=== PATIENT | male | born 1975 | race Caucasian/White ===

== ENCOUNTER 2018-09-05 10:11 | Emergency (ER) | payer OTHER ==
[~2018-09-05] VITALS: Ht 172.7 cm; Wt 74.8 kg
[2018-09-05 11:19] LABS: HEMATOCRIT 41.5 % (42.0-52.0); HEMOGLOBIN 14.3 gm/dL (14.0-18.0); MCHC 34.5 g/dL (28.0-37.0); MCV 98.5 fL (80.0-100.0); RBC 4.21 mil/uL (4.50-6.00); RDW 12.8 % (10.5-14.5)
[2018-09-05 11:22] LABS: CALCIUM 9.1 mg/dL (8.5-10.1); CREATININE 1.2 mg/dL (0.7-1.3); POTASSIUM 3.9 mmol/L (3.5-5.1)
[2018-09-05] MEDS ORDERED: THERAFLU EXPRE1 EAC1 PO (11:49)
[2018-09-05] MEDS ORDERED: PHENERGAN 25 MG25 M1 PO (12:29)
[2018-09-05] MEDS ORDERED: NAPROSYN500 MG PO (12:29)
[2018-09-05 12:38] VITALS: BP 107/63
== END 2018-09-05 12:39 | disposition home or self-care (01) ==
LOC: ER 10:11
PROVIDERS: Physician Assistant
DX: B34.9 Viral infection, unspecified (principal); R42 Dizziness and giddiness; F90.9 Attention-deficit hyperactivity disorder, unspecified type